=== PATIENT | female | born 2000 | race Caucasian/White ===

== ENCOUNTER → 2018-04-03 | Outpatient (CLI) | payer OTHER ==
[~2018-04-03] MED LIST: Amoxicillin500 MG PO; CODACEE120 PO; ERYT.5TO OS; Flomax0.4 MG PO; HYDACE5 PO; IBUP200 PO; LAXATIVES; MULTCH; PROC10 PO; PROM25 PO; Percocet 5-3251 EACH PO; RXCODACESY PO; RXERYTOPTH OS; SULTRIDS PO; SULTRIEL PO
[2018-04-03 14:00] LABS: BASOPHILS ABSOLUTE AUTO 0.02 K/mm3 (0.00-0.23); BASOPHILS PERCENT AUTO 0 % (0-2); EOSINOPHILS ABSOLUTE AUTO 0.18 K/mm3 (0.00-0.68); EOSINOPHILS PERCENT AUTO 3 % (0-6); Hematocrit 41.7 % (33.0-51.0); IMMATURE GRAN ABSOLUTE AUTO 0.01 K/mm3 (0.00-0.10); IMMATURE GRAN PERCENT AUTO 0 % (0-1); LYMPHOCYTES ABSOLUTE AUTO 1.43 K/mm3 (0.84-5.20); LYMPHOCYTES PERCENT AUTO 25 % (21-46); MONOCYTES ABSOLUTE AUTO 0.35 K/mm3 (0.16-1.47); MONOCYTES PERCENT AUTO 6 % (4-13); Mean Corpuscular HGB 29.9 pg (26.0-34.0); Mean Corpuscular HGB Conc 33.6 g/dL (31.5-36.5); Mean Corpuscular Volume 89 fL (80-100); Mean Platelet Volume 11.6 fL (9.1-12.4); NEUTROPHILS ABSOLUTE AUTO 3.68 K/mm3 (1.96-9.15); NEUTROPHILS PERCENT AUTO 65 % (41-73); Platelet Count 248 K/mm3 (150-400); RDW Coefficient Variation 14.3 % (11.7-14.2); Red Blood Cell Count 4.69 M/mm3 (3.80-5.20); White Blood Cell Count 5.67 K/mm3 (4.00-11.30)
[2018-04-03 14:18] LABS: Alanine Aminotransfer (ALT/SGP 15 U/L (12-78); Albumin, Blood 4.2 g/dL (3.4-5.0); Albumin/Globulin Ratio 1.3 (0.8-1.8); Alk Phos 82 U/L (40-126); Amylase, Blood 81 U/L (25-115); Anion Gap 10 mmol/L (6-16); Aspartate Aminotrans (AST/SGOT 15 U/L (12-37); Bilirubin, Total 2.1 mg/dL (0.1-1.0); Blood Urea Nitrogen 13 mg/dL (8-21); Bun/Creatinine Ratio 18.6 (12.0-20.0); CO2, Blood 26 mmol/L (21-32); Calcium, Blood 9.4 mg/dL (8.5-10.1); Chloride, Blood 104 mmol/L (98-108); Free Thyroxine 0.94 ng/dL (0.70-1.60); Globulin, Blood 3.2 g/dL (2.2-4.0); Glomerular Filtration Rate >60 (60-); Glucose, Blood 76 mg/dL (70-99); Potassium, Blood 4.1 mmol/L (3.5-5.5); Sodium, Blood 140 mmol/L (136-145); Thyroid Stimulating Hormone 0.845 uIU/mL (0.360-4.800); Total Protein, Blood 7.4 g/dL (6.4-8.2)
== END | disposition home or self-care (01) ==
LOC: LAB SHORT 13:48 → LAB EV 13:48
PROVIDERS: General Practice
DX: R10.9 Unspecified abdominal pain (principal); R53.83 Other fatigue
CPT/HCPCS: 80053; 82150; 83690; 84439; 84443; 84702; 85025

== ENCOUNTER 2021-02-17 09:57 | Emergency (ER) | payer OTHER ==
[~2021-02-17] VITALS: Ht 160 cm; Wt 44.5 kg
[2021-02-17 11:44] LABS: Hematocrit 44.1 % (33.0-51.0); Hemoglobin 15.1 g/dL (11.5-16.0); Mean Corpuscular HGB 31.1 pg (26.0-34.0); Mean Corpuscular HGB Conc 34.2 g/dL (31.5-36.5); Mean Corpuscular Volume 91 fL (80-100); Platelet Count 140 K/mm3 (150-400); RDW Coefficient Variation 13.5 % (11.7-14.2); RDW Standard Deviation 45.6 fL (35.1-46.3); Red Blood Cell Count 4.85 M/mm3 (3.80-5.20); White Blood Cell Count 2.78 K/mm3 (4.00-11.30)
[2021-02-17 12:08] LABS: Alanine Aminotransfer (ALT/SGP 43 U/L (12-78); Albumin, Blood 3.8 g/dL (3.4-5.0); Albumin/Globulin Ratio 1.1 (0.8-1.8); Alk Phos 100 U/L (50-136); Anion Gap 7 mmol/L (6-16); Aspartate Aminotrans (AST/SGOT 47 U/L (12-37); Beta HCG, Quantitative, Serum <1 mIU/mL (0-3); Bilirubin, Total 0.5 mg/dL (0.1-1.0); Blood Urea Nitrogen 11 mg/dL (8-24); Bun/Creatinine Ratio 16.3 (12.0-20.0); CO2, Blood 25 mmol/L (21-32); Calcium, Blood 8.9 mg/dL (8.5-10.1); Chloride, Blood 107 mmol/L (98-108); Creatinine, Blood 0.68 mg/dL (0.40-1.00); Globulin, Blood 3.6 g/dL (2.2-4.0); Glomerular Filtration Rate >60 (60-); Glucose, Blood 97 mg/dL (70-99); Potassium, Blood 3.4 mmol/L (3.5-5.5); Sodium, Blood 139 mmol/L (136-145); Thyroid Stimulating Hormone 0.645 uIU/mL (0.360-4.800); Total Protein, Blood 7.4 g/dL (6.4-8.2)
[2021-02-17 12:17] LABS: BAND PERCENT MAN 7 % (0-8); NEUTROPHILS ABSOLUTE MAN 2.44 K/mm3 (1.96-9.15); SEG NEUTROPHILS PERCENT MAN 81 % (41-73); TOTAL CELLS COUNTED 100
[2021-02-17 12:18] LABS: BASOPHILS PERCENT MAN 0 % (0-2); EOSINOPHILS PERCENT MAN 0 % (0-6); LYMPHOCYTES % ATYPICAL MANUAL 2 % (0-0); LYMPHOCYTES ABSOLUTE MAN 0.25 K/mm3 (0.84-5.20); LYMPHOCYTES PERCENT MAN 7 % (21-46); MONOCYTES ABSOLUTE MAN 0.08 K/mm3 (0.16-1.47); MONOCYTES PERCENT MAN 3 % (4-13)
[2021-02-17 12:48] LABS: Influenza A, PCR NEGATIVE (NEGATIVE); Influenza B, PCR NEGATIVE (NEGATIVE); Resp Syncytial Virus, PCR NEGATIVE (NEGATIVE); SARS-Cov-2 (COVID-19) PCR, MMC NEGATIVE (NEGATIVE)
[2021-02-17 13:02] LABS: Source, Urine Voided
[2021-02-17 13:07] LABS: Bilirubin, Urine Neg (Neg); Blood, Urine 1+ (Neg); Glucose Qualitative, Urine Neg (Neg); Ketones, Urine 4+ (Neg); Leukocyte Esterase, Urine 1+ (Neg); Nitrite, Urine Neg (Neg); Protein, Urine Neg (Neg); Urobilinogen, Urine NORM (Normal)
[2021-02-17 13:21] LABS: Appearance, Urine Clear (Clear); Bacteria Mod /hpf; Color, Urine Yellow (P-Yellow); Red Blood Cells, Urine 0-2 /hpf (0-2); Squamous Epithelial Cells Few /hpf (Few); White Blood Cells, Urine 0-2 /hpf (0-5)
[2021-02-17 13:22] LABS: U Amphetamine Screen Not Detected; U Barbituate Screen Not Detected; U Benzodiazapine Screen DETECTED; U Buprenorphine Screen Not Detected; U Cannabinoids Screen DETECTED; U Cocaine Screen Not Detected; U Methadone Screen Not Detected; U Methamphetamine Screen Not Detected; U Opiates Screen Not Detected; U Oxycodone Screen Not Detected; U Phencyclidine Screen Not Detected; U Propoxyphene Screen Not Detected
[2021-02-17] MEDS ORDERED: ONDA4ODT SL (13:26)
[2021-02-17] MEDS ORDERED: HYDR1TAB94 PO (13:26)
[2021-02-17] MEDS ORDERED: PHENERGAN25 MG PR (13:51)
== END 2021-02-17 13:52 | disposition home or self-care (01) ==
LOC: ER 09:57
PROVIDERS: Emergency Medicine
DX: R59.0 Localized enlarged lymph nodes (principal); R11.2 Nausea with vomiting, unspecified; Z20.822 Contact with and (suspected) exposure to COVID-19; Z87.442 Personal history of urinary calculi
CPT/HCPCS: 0241U; 36415; 80053; 81001; 84443; 84702; 85025; 87086; 96374; 96375; 99283-25; J2060; J2405; J7120

== ENCOUNTER 2021-07-05 16:59 | Emergency (ER) | payer OTHER ==
[~2021-07-05] VITALS: Ht 160 cm; Wt 47.6 kg
[~2021-07-05 16:59] MED LIST changes: +HYDR1TAB94 PO; +ONDA4ODT SL; +PHENERGAN25 MG PR
[2021-07-05 17:39] LABS: BASOPHILS ABSOLUTE AUTO 0.02 K/mm3 (0.00-0.23); BASOPHILS PERCENT AUTO 0 % (0-2); EOSINOPHILS ABSOLUTE AUTO 0.07 K/mm3 (0.00-0.68); EOSINOPHILS PERCENT AUTO 1 % (0-6); Hemoglobin 13.1 g/dL (11.5-16.0); IMMATURE GRAN ABSOLUTE AUTO 0.02 K/mm3 (0.00-0.10); IMMATURE GRAN PERCENT AUTO 0 % (0-1); LYMPHOCYTES ABSOLUTE AUTO 1.18 K/mm3 (0.84-5.20); LYMPHOCYTES PERCENT AUTO 19 % (21-46); MONOCYTES ABSOLUTE AUTO 0.39 K/mm3 (0.16-1.47); MONOCYTES PERCENT AUTO 6 % (4-13); Mean Corpuscular HGB 30.3 pg (26.0-34.0); Mean Corpuscular HGB Conc 33.6 g/dL (31.5-36.5); Mean Corpuscular Volume 90 fL (80-100); Mean Platelet Volume 11.3 fL (9.1-12.4); NEUTROPHILS ABSOLUTE AUTO 4.61 K/mm3 (1.96-9.15); NEUTROPHILS PERCENT AUTO 73 % (41-73); Platelet Count 227 K/mm3 (150-400); RDW Coefficient Variation 13.1 % (11.7-14.2); Red Blood Cell Count 4.33 M/mm3 (3.80-5.20); White Blood Cell Count 6.29 K/mm3 (4.00-11.30)
[2021-07-05 18:02] LABS: Alanine Aminotransfer (ALT/SGP 18 U/L (12-78); Albumin, Blood 4.2 g/dL (3.4-5.0); Albumin/Globulin Ratio 1.4 (0.8-1.8); Alk Phos 78 U/L (50-136); Anion Gap 7 mmol/L (6-16); Aspartate Aminotrans (AST/SGOT 23 U/L (12-37); Bilirubin, Total 1.1 mg/dL (0.1-1.0); Blood Urea Nitrogen 10 mg/dL (8-24); Bun/Creatinine Ratio 14.8 (12.0-20.0); CO2, Blood 24 mmol/L (21-32); Calcium, Blood 8.8 mg/dL (8.5-10.1); Chloride, Blood 108 mmol/L (98-108); Creatinine, Blood 0.68 mg/dL (0.40-1.00); Globulin, Blood 3.1 g/dL (2.2-4.0); Glomerular Filtration Rate >60 (60-); Glucose, Blood 88 mg/dL (70-99); Potassium, Blood 3.6 mmol/L (3.5-5.5); Sodium, Blood 139 mmol/L (136-145); Total Protein, Blood 7.3 g/dL (6.4-8.2)
[2021-07-05 18:54] LABS: Source, Urine Clean Catch
[2021-07-05 18:57] LABS: Appearance, Urine Clear (Clear); Bilirubin, Urine Neg (Neg); Blood, Urine 2+ (Neg); Color, Urine Yellow (P-Yellow); Glucose Qualitative, Urine Neg (Neg); Ketones, Urine 2+ (Neg); Leukocyte Esterase, Urine 1+ (Neg); Nitrite, Urine Neg (Neg); Protein, Urine 2+ (Neg); Specific Gravity, Urine 1.025 (1.003-1.022); Urobilinogen, Urine 1+ (Normal)
[2021-07-05 19:09] LABS: Bacteria Mod /hpf; Mucus Mod (0-Heavy); Red Blood Cells, Urine 0-2 /hpf (0-2); Squamous Epithelial Cells Few /hpf (Few); White Blood Cells, Urine 0-2 /hpf (0-5)
[2021-07-05] MEDS ORDERED: CITA20 PO (20:38)
== END 2021-07-05 21:25 | disposition home or self-care (01) ==
LOC: ER 16:59
PROVIDERS: Physician Assistant
DX: N93.9 Abnormal uterine and vaginal bleeding, unspecified (principal); R10.2 Pelvic and perineal pain
CPT/HCPCS: 36415; 80053; 81001; 81025; 83690; 85025; 87086; 96374; 96375; 99283-25; J1885; J2405

== ENCOUNTER → 2022-02-02 | Outpatient (CLI) | payer OTHER ==
[~2022-02-02] MED LIST changes: +CITA20 PO
[2022-02-03 10:07] LABS: Candida species (DNA Probe) Positive (NEGATIVE); G. vaginalis (DNA Probe) Positive (NEGATIVE); T. vaginalis (DNA Probe) Negative (NEGATIVE)
[2022-02-05 03:11] LABS: CHLAMYDIA TRACHOMATIS, NAA Negative (Negative)
== END | disposition home or self-care (01) ==
LOC: LAB SHORT 16:00 → LAB 16:00
PROVIDERS: Family Medicine
DX: R10.9 Unspecified abdominal pain (principal)
CPT/HCPCS: 87480; 87510; 87660

== ENCOUNTER → 2022-03-06 | Outpatient (CLI) | payer OTHER ==
[2022-03-07 13:02] LABS: Candida species (DNA Probe) Negative (NEGATIVE); G. vaginalis (DNA Probe) Negative (NEGATIVE); T. vaginalis (DNA Probe) Negative (NEGATIVE)
== END | disposition home or self-care (01) ==
LOC: LAB 17:00 → LAB SHORT 17:00
PROVIDERS: Obstetrics & Gynecology
DX: N94.89 Other specified conditions associated with female genital organs and menstrual cycle (principal); R10.9 Unspecified abdominal pain
CPT/HCPCS: 87480; 87510; 87660

== ENCOUNTER 2023-08-06 22:55 | Emergency (ER) | payer OTHER ==
[~2023-08-06] VITALS: Ht 162.6 cm; Wt 50.8 kg
[2023-08-06 23:14] VITALS: BP 145/112
[2023-08-07 00:53] LABS: BASOPHILS ABSOLUTE AUTO 0.01 K/mm3 (0.00-0.23); BASOPHILS PERCENT AUTO 0 % (0-2); EOSINOPHILS ABSOLUTE AUTO 0.02 K/mm3 (0.00-0.68); EOSINOPHILS PERCENT AUTO 0 % (0-6); Hematocrit 44.1 % (33.0-51.0); Hemoglobin 15.2 g/dL (11.5-16.0); IMMATURE GRAN ABSOLUTE AUTO 0.01 K/mm3 (0.00-0.10); IMMATURE GRAN PERCENT AUTO 0 % (0-1); LYMPHOCYTES ABSOLUTE AUTO 1.06 K/mm3 (0.84-5.20); LYMPHOCYTES PERCENT AUTO 18 % (21-46); MONOCYTES ABSOLUTE AUTO 0.33 K/mm3 (0.16-1.47); MONOCYTES PERCENT AUTO 6 % (4-13); Mean Corpuscular HGB 31.1 pg (26.0-34.0); Mean Corpuscular HGB Conc 34.5 g/dL (31.5-36.5); Mean Corpuscular Volume 90 fL (80-100); Mean Platelet Volume 10.8 fL (9.1-12.4); NEUTROPHILS ABSOLUTE AUTO 4.52 K/mm3 (1.96-9.15); NEUTROPHILS PERCENT AUTO 76 % (41-73); Platelet Count 232 K/mm3 (150-400); RDW Coefficient Variation 12.8 % (11.7-14.2); RDW Standard Deviation 42.2 fL (35.1-46.3); Red Blood Cell Count 4.89 M/mm3 (3.80-5.20); White Blood Cell Count 5.95 K/mm3 (4.00-11.30)
[2023-08-07 01:00] LABS: Source, Urine Clean Catch
[2023-08-07 01:14] LABS: Bilirubin, Urine Neg (Neg); Blood, Urine Neg (Neg); Glucose Qualitative, Urine Neg (Neg); Ketones, Urine 4+ (Neg); Leukocyte Esterase, Urine Neg (Neg); Nitrite, Urine Neg (Neg); Protein, Urine 2+ (Neg); Urobilinogen, Urine NORM (Normal)
[2023-08-07 01:20] LABS: Color, Urine Yellow (P-Yellow)
[2023-08-07 01:21] LABS: Appearance, Urine Hazy (Clear); Bacteria Few /hpf; Mucus Light (0-Heavy); Red Blood Cells, Urine 0-2 /hpf (0-2); Squamous Epithelial Cells Mod /hpf (Few); White Blood Cells, Urine 0-2 /hpf (0-5)
[2023-08-07 01:24] LABS: Albumin, Blood 4.1 g/dL (3.4-5.0); Albumin/Globulin Ratio 1.2 (0.8-1.8); Bilirubin, Total 0.6 mg/dL (0.1-1.0); Bun/Creatinine Ratio 16.1 (12.0-20.0); Calcium, Blood 9.1 mg/dL (8.5-10.1); Creatinine, Blood 0.62 mg/dL (0.40-1.00); Globulin, Blood 3.4 g/dL (2.2-4.0); Magnesium, Blood 2.2 mg/dL (1.6-2.4); Potassium, Blood 4.1 mmol/L (3.5-5.5); Total Protein, Blood 7.5 g/dL (6.4-8.2)
[2023-08-07] MEDS ORDERED: ONDA4ODT MM (02:50)
[2023-08-07] MEDS ORDERED: METO10 PO (02:50)
== END 2023-08-07 03:21 | disposition home or self-care (01) ==
LOC: ER 22:55
PROVIDERS: Student in an Organized Health Care Education/Training Program
DX: U07.1 COVID-19 (principal); E86.0 Dehydration; Z79.899 Other long term (current) drug therapy
CPT/HCPCS: 80053; 81001; 81025; 83735; 85025; 96374; 96375; 99284-25; A9270; J1200; J1885; J2405; J2765; J7030

== ENCOUNTER → 2024-03-01 | Outpatient (CLI) | payer OTHER ==
[~2024-03-01] MED LIST changes: +METO10 PO; +ONDA4ODT MM
[2024-03-01 15:18] LABS: Candida glabrata-krusei, PCR NOT DETECTED (NOT DETECT)
[2024-03-01 15:21] LABS: Bacterial Vaginosis PCR Positive (NEGATIVE); Candida Group, PCR DETECTED (NOT DETECT)
[2024-03-03 23:40] LABS: C. TRACHOMATIS BY TMA,THINPREP Negative (Negative); N. GONORRHOEAE BY TMA,THINPREP Negative (Negative); SPECIMEN SOURCE Not Provided
== END | disposition home or self-care (01) ==
LOC: LAB SHORT 12:13 → LAB 12:13
PROVIDERS: Advanced Practice Midwife
DX: Z01.419 Encounter for gynecological examination (general) (routine) without abnormal findings (principal); Z11.3 Encounter for screening for infections with a predominantly sexual mode of transmission; N76.0 Acute vaginitis
CPT/HCPCS: 87481; 87491; 87591; 87661; 87801; G0123

== ENCOUNTER → 2024-06-12 | Outpatient (CLI) | payer OTHER ==
[~2024-06-12] MED LIST changes: +ALPRAZOLAM0.5 M1 PO; +CATAPRES0.1 MG PO; +ESCI10 PO; +Flagyl500 MG PO; +HYDHCL25 PO; +METOPROLOL SUCC25 MG PO
[2024-06-12 14:01] LABS: Bacterial Vaginosis PCR Negative (NEGATIVE); Candida Group, PCR NOT DETECTED (NOT DETECT)
[2024-06-12 14:20] LABS: Candida glabrata-krusei, PCR DETECTED (NOT DETECT)
[2024-06-14 08:52] LABS: APTIMA MEDIA TYPE Unisex Swab; C. TRACHOMATIS BY TMA Negative (Negative); N. GONORRHOEAE BY TMA Negative (Negative); SPECIMEN SOURCE Vaginal
== END | disposition home or self-care (01) ==
LOC: LAB SHORT 11:15 → LAB 11:15
PROVIDERS: Physician Assistant
DX: N89.8 Other specified noninflammatory disorders of vagina (principal)
CPT/HCPCS: 87481; 87491; 87591; 87661; 87801

== ENCOUNTER 2024-09-08 16:05 | Emergency (ER) | payer OTHER ==
[~2024-09-08] VITALS: Ht 160 cm; Wt 49.4 kg
[~2024-09-08 16:05] MED LIST changes: -ONDA4 PO; -PERCOCET 10-321 EA10 PO; -TAMS.4ER PO
[2024-09-08 16:55] LABS: Source, Urine Clean Catch
[2024-09-08 17:01] LABS: BASOPHILS ABSOLUTE AUTO 0.01 K/mm3 (0.00-0.23); BASOPHILS PERCENT AUTO 0 % (0-2); EOSINOPHILS ABSOLUTE AUTO 0.01 K/mm3 (0.00-0.68); EOSINOPHILS PERCENT AUTO 0 % (0-6); Hematocrit 36.3 % (33.0-51.0); Hemoglobin 12.3 g/dL (11.5-16.0); IMMATURE GRAN ABSOLUTE AUTO 0.04 K/mm3 (0.00-0.10); IMMATURE GRAN PERCENT AUTO 0 % (0-1); LYMPHOCYTES ABSOLUTE AUTO 0.71 K/mm3 (0.84-5.20); LYMPHOCYTES PERCENT AUTO 7 % (21-46); MONOCYTES ABSOLUTE AUTO 0.49 K/mm3 (0.16-1.47); MONOCYTES PERCENT AUTO 5 % (4-13); Mean Corpuscular HGB 31.7 pg (26.0-34.0); Mean Corpuscular HGB Conc 33.9 g/dL (31.5-36.5); Mean Corpuscular Volume 94 fL (80-100); Mean Platelet Volume 10.8 fL (9.1-12.4); NEUTROPHILS PERCENT AUTO 88 % (41-73); Platelet Count 203 K/mm3 (150-400); RDW Coefficient Variation 13.4 % (11.7-14.2); RDW Standard Deviation 45.4 fL (35.1-46.3); Red Blood Cell Count 3.88 M/mm3 (3.80-5.20); White Blood Cell Count 10.46 K/mm3 (4.00-11.30)
[2024-09-08 17:01] LABS: Appearance, Urine Cloudy (Clear); Bilirubin, Urine Neg (Neg); Blood, Urine 5+ (Neg); Color, Urine Yellow (P-Yellow); Glucose Qualitative, Urine Neg (Neg); Ketones, Urine Neg (Neg); Leukocyte Esterase, Urine 1+ (Neg); Nitrite, Urine Neg (Neg); Protein, Urine 1+ (Neg); Specific Gravity, Urine 1.025 (1.003-1.022); Urobilinogen, Urine NORM (Normal)
[2024-09-08 17:14] LABS: Bacteria Many /hpf; Red Blood Cells, Urine 25-50 /hpf (0-2); Squamous Epithelial Cells Few /hpf (Few); Yeast/Fungi Urine Mod /hpf
[2024-09-08 17:15] LABS: Calcium Oxalate Crystals Few /hpf
[2024-09-08 17:37] LABS: Magnesium, Blood 1.8 mg/dL (1.6-2.4)
[2024-09-08 17:41] LABS: Albumin, Blood 3.7 g/dL (3.4-5.0); Albumin/Globulin Ratio 1.4 (0.8-1.8); Bilirubin, Total 0.4 mg/dL (0.1-1.0); Bun/Creatinine Ratio 9.4 (12.0-20.0); Calcium, Blood 8.6 mg/dL (8.5-10.1); Creatinine, Blood 0.95 mg/dL (0.40-1.00); Globulin, Blood 2.7 g/dL (2.2-4.0); Potassium, Blood 3.7 mmol/L (3.5-5.5); Total Protein, Blood 6.4 g/dL (6.4-8.2)
[2024-09-08] MEDS ORDERED: OxyCODONE HCL 5 MG TAB PO ONE (18:40)
[2024-09-08] MEDS ORDERED: NS 1,000 ML IV SCH (19:40)
[2024-09-08 21:40] LABS: Source, Urine Straight Cath
[2024-09-08 21:45] LABS: Appearance, Urine Clear (Clear); Bilirubin, Urine Neg (Neg); Blood, Urine 2+ (Neg); Color, Urine Yellow (P-Yellow); Glucose Qualitative, Urine Neg (Neg); Ketones, Urine Neg (Neg); Leukocyte Esterase, Urine Neg (Neg); Nitrite, Urine Neg (Neg); Protein, Urine Neg (Neg); Specific Gravity, Urine 1.025 (1.003-1.022); Urobilinogen, Urine NORM (Normal)
[2024-09-08] MEDS ORDERED: HYDROmorphone HCl 2 MG Tab PO ONE (21:50)
[2024-09-08] MEDS ORDERED: Tamsulosin HCl 0.4 MG Cap PO ONE (21:50)
[2024-09-08 21:59] LABS: Bacteria Mod /hpf; Squamous Epithelial Cells Few /hpf (Few); White Blood Cells, Urine 0-2 /hpf (0-5)
[2024-09-08] MEDS ORDERED: Ondansetron 4 MG SoluTab SL ONE (22:20)
[2024-09-08] MEDS ORDERED: RX Prepack 6 Tabs Oxycodone 5mg UD ONE (22:50)
[2024-09-08] MEDS ORDERED: RX Prepack 2 Tabs Ondansetron ODT 4MG UD ONE (22:50)
[2024-09-08 23:02] VITALS: BP 126/75
[2024-09-08] MEDS ORDERED: TAMS.4ER PO (23:04)
[2024-09-08] MEDS ORDERED: PERCOCET 10-321 EA10 PO (23:04)
[2024-09-08] MEDS ORDERED: ONDA4 PO (23:05)
[2024-09-09] MEDS ORDERED: Percocet 5-3251 EACH PO (11:41)
== END 2024-09-08 23:12 | disposition home or self-care (01) ==
LOC: ER 16:05
PROVIDERS: Physician Assistant; Student in an Organized Health Care Education/Training Program
DX: N13.2 Hydronephrosis with renal and ureteral calculous obstruction (principal); M41.9 Scoliosis, unspecified; R93.41 Abnormal radiologic findings on diagnostic imaging of renal pelvis, ureter, or bladder; R10.9 Unspecified abdominal pain; Z87.442 Personal history of urinary calculi; Z79.899 Other long term (current) drug therapy
CPT/HCPCS: 74176; 76770; 80048; 80053; 81001; 83735; 84703; 85025; 87086; 96360; 96361; 99284-25; A9270; J7030; P9612

== ENCOUNTER → 2024-09-08 | Outpatient (CLI) | payer OTHER ==
[~2024-09-08] MED LIST changes: +CEPH500 PO; +ONDA4 PO; +PERCOCET 10-321 EA10 PO; +TAMS.4ER PO
[2024-09-08 11:34] LABS: Bun/Creatinine Ratio 10.1 (12.0-20.0); Calcium, Blood 8.9 mg/dL (8.5-10.1); Creatinine, Blood 0.89 mg/dL (0.40-1.00); Potassium, Blood 3.6 mmol/L (3.5-5.5)
== END ==
LOC: LAB SHORT 11:23 → LAB 11:23
PROVIDERS: Family Medicine
DX: R10.9 Unspecified abdominal pain (principal)
CPT/HCPCS: 80048

== ENCOUNTER → 2025-01-11 | Outpatient (CLI) | payer OTHER ==
[~2025-01-11] MED LIST changes: +ONDA4 PO; +PERCOCET 10-321 EA10 PO; +TAMS.4ER PO
== END ==
LOC: LAB 15:49 → LAB SHORT 15:49
PROVIDERS: Advanced Practice Midwife
DX: R87.615 Unsatisfactory cytologic smear of cervix (principal)
CPT/HCPCS: G0123

== ENCOUNTER → 2025-07-10 | Outpatient (CLI) | payer OTHER ==
[2025-07-10 17:20] LABS: BASOPHILS ABSOLUTE AUTO 0.02 K/mm3 (0.00-0.23); BASOPHILS PERCENT AUTO 0 % (0-2); EOSINOPHILS ABSOLUTE AUTO 0.04 K/mm3 (0.00-0.68); EOSINOPHILS PERCENT AUTO 0 % (0-6); Hematocrit 37.0 % (33.0-51.0); Hemoglobin 12.6 g/dL (11.5-16.0); IMMATURE GRAN ABSOLUTE AUTO 0.05 K/mm3 (0.00-0.10); IMMATURE GRAN PERCENT AUTO 1 % (0-1); LYMPHOCYTES ABSOLUTE AUTO 1.53 K/mm3 (0.84-5.20); LYMPHOCYTES PERCENT AUTO 14 % (21-46); MONOCYTES ABSOLUTE AUTO 0.65 K/mm3 (0.16-1.47); MONOCYTES PERCENT AUTO 6 % (4-13); Mean Corpuscular HGB Conc 34.1 g/dL (31.5-36.5); Mean Corpuscular Volume 88 fL (80-100); NEUTROPHILS ABSOLUTE AUTO 8.31 K/mm3 (1.96-9.15); NEUTROPHILS PERCENT AUTO 78 % (41-73); NRBC ABSOLUTE 0.00 K/mm3 (0.00-0.02); NRBC Auto 0.0 /100 WBC (0.0-0.2); Platelet Count 294 K/mm3 (150-400); RDW Coefficient Variation 15.8 % (11.7-14.2); RDW Standard Deviation 50.4 fL (35.1-46.3)
[2025-07-10 17:29] LABS: Alanine Aminotransfer (ALT/SGP 20.0 U/L (12-78); Albumin, Blood 3.4 g/dL (3.4-5.0); Albumin/Globulin Ratio 0.9 (0.8-1.8); Anion Gap 14.0 mmol/L (3-11); Aspartate Aminotrans (AST/SGOT 21.0 U/L (12-37); Bilirubin, Total 0.8 mg/dL (0.1-1.0); Blood Urea Nitrogen 7.0 mg/dL (8-24); CO2, Blood 25.0 mmol/L (21-32); Calcium, Blood 8.8 mg/dL (8.5-10.1); Chloride, Blood 99.0 mmol/L (98-108); Creatinine, Blood 0.65 mg/dL (0.40-1.00); Globulin, Blood 3.8 g/dL (2.2-4.0); Glucose, Blood 78.0 mg/dL (70-99); Potassium, Blood 3.0 mmol/L (3.5-5.5); Sodium, Blood 135.0 mmol/L (136-145); Total Protein, Blood 7.2 g/dL (6.4-8.2)
== END | disposition home or self-care (01) ==
LOC: LAB 17:14 → LAB SHORT 17:14
PROVIDERS: Family Medicine
DX: N39.0 Urinary tract infection, site not specified (principal); R11.2 Nausea with vomiting, unspecified
CPT/HCPCS: 80053; 85025; 87086

== ENCOUNTER → 2025-07-18 | Outpatient (CLI) | payer OTHER | LOC: LAB 15:45 → LAB SHORT 15:45 | DX: R30.0 Dysuria (principal) | CPT/HCPCS: 87086 ==

== ENCOUNTER 2025-09-01 19:40 | Observation (INO) | payer OTHER ==
[~2025-09-01] VITALS: Ht 160 cm; Wt 62.6 kg
[2025-09-01] MEDS ORDERED: Morphine Sulfate 4 MG/1 ML Injection IV ONE (20:30)
[2025-09-01] MEDS ORDERED: NS 1,000 ML IV SCH ×2 (20:30→22:05)
[2025-09-01 20:48] LABS: Source, Urine Clean Catch
[2025-09-01 20:51] LABS: BASOPHILS ABSOLUTE AUTO 0.04 K/mm3 (0.00-0.23); BASOPHILS PERCENT AUTO 0 % (0-2); EOSINOPHILS ABSOLUTE AUTO 0.05 K/mm3 (0.00-0.68); EOSINOPHILS PERCENT AUTO 0 % (0-6); Hematocrit 37.4 % (33.0-51.0); Hemoglobin 12.4 g/dL (11.5-16.0); IMMATURE GRAN ABSOLUTE AUTO 0.09 K/mm3 (0.00-0.10); IMMATURE GRAN PERCENT AUTO 1 % (0-1); LYMPHOCYTES ABSOLUTE AUTO 1.39 K/mm3 (0.84-5.20); LYMPHOCYTES PERCENT AUTO 11 % (21-46); MONOCYTES ABSOLUTE AUTO 0.61 K/mm3 (0.16-1.47); MONOCYTES PERCENT AUTO 5 % (4-13); Mean Corpuscular HGB Conc 33.2 g/dL (31.5-36.5); Mean Corpuscular Volume 86 fL (80-100); NEUTROPHILS ABSOLUTE AUTO 10.16 K/mm3 (1.96-9.15); NEUTROPHILS PERCENT AUTO 82 % (41-73); NRBC ABSOLUTE 0.00 K/mm3 (0.00-0.02); NRBC Auto 0.0 /100 WBC (0.0-0.2); Platelet Count 282 K/mm3 (150-400); RDW Coefficient Variation 14.4 % (11.7-14.2); RDW Standard Deviation 45.0 fL (35.1-46.3)
[2025-09-01 21:00] LABS: Bilirubin, Urine Neg (Neg); Color, Urine Brown (P-Yellow); Glucose Qualitative, Urine Neg (Neg); Ketones, Urine Neg (Neg); Leukocyte Esterase, Urine 2+ (Neg); Protein, Urine 3+ (Neg); Specific Gravity, Urine 1.020 (1.003-1.022); Urobilinogen, Urine NORM (Normal)
[2025-09-01 21:10] LABS: Alanine Aminotransfer (ALT/SGP 23.0 U/L (12-78); Albumin, Blood 3.1 g/dL (3.4-5.0); Albumin/Globulin Ratio 0.8 (0.8-1.8); Anion Gap 7.0 mmol/L (3-11); Aspartate Aminotrans (AST/SGOT 20.0 U/L (12-37); Bilirubin, Total 0.5 mg/dL (0.1-1.0); Blood Urea Nitrogen 15.0 mg/dL (8-24); CO2, Blood 19.0 mmol/L (21-32); Calcium, Blood 8.7 mg/dL (8.5-10.1); Chloride, Blood 112.0 mmol/L (98-108); Creatinine, Blood 0.69 mg/dL (0.40-1.00); Globulin, Blood 3.8 g/dL (2.2-4.0); Glucose, Blood 95.0 mg/dL (70-99); Potassium, Blood 3.6 mmol/L (3.5-5.5); Sodium, Blood 134.0 mmol/L (136-145); Total Protein, Blood 6.9 g/dL (6.4-8.2)
[2025-09-01 21:16] LABS: Red Blood Cells, Urine 50-100 /hpf (0-2); White Blood Cells, Urine 25-50 /hpf (0-5)
[2025-09-01] MEDS ORDERED: CefTRIAXone Sodium 1,000 MG in NS 100 ML IV ONE (21:35)
[2025-09-01] MEDS ORDERED: FentaNYL Citrate 50 MCG/ML 2 ML Injection IV ONE (22:05)
[2025-09-01] MEDS ORDERED: Magnesium Hydroxide Conc 10 ML UDC PO PRN (22:45)
[2025-09-01] MEDS ORDERED: FentaNYL Citrate 50 MCG/ML 2 ML Injection IV PRN (22:50)
[2025-09-01] MEDS ORDERED: NIFEdipine 60 MG TabCR PO SCH (23:00)
[2025-09-01] MEDS ORDERED: Ondansetron HCl 2 MG / ML 2ML Vial ONE (23:43)
[2025-09-01 23:53] VITALS: BP 172/112
[2025-09-01] MEDS ORDERED: Ondansetron HCl 2 MG / ML 2ML Vial IV PRN (23:55)
[2025-09-02] VITALS (23 sets, daily range): BP systolic 109–164; BP diastolic 58–105
[2025-09-02] MEDS ORDERED: NIFE60ER PO (00:25)
[2025-09-02] MEDS ORDERED: Buspirone HCl15 MG PO (00:25)
[2025-09-02] MEDS ORDERED: ASPIR 8181 M1 PO (00:26)
[2025-09-02 05:43] LABS: BASOPHILS ABSOLUTE AUTO 0.03 K/mm3 (0.00-0.23); BASOPHILS PERCENT AUTO 0 % (0-2); EOSINOPHILS ABSOLUTE AUTO 0.07 K/mm3 (0.00-0.68); EOSINOPHILS PERCENT AUTO 1 % (0-6); Hematocrit 32.8 % (33.0-51.0); Hemoglobin 10.8 g/dL (11.5-16.0); IMMATURE GRAN ABSOLUTE AUTO 0.09 K/mm3 (0.00-0.10); IMMATURE GRAN PERCENT AUTO 1 % (0-1); LYMPHOCYTES ABSOLUTE AUTO 1.80 K/mm3 (0.84-5.20); LYMPHOCYTES PERCENT AUTO 17 % (21-46); MONOCYTES ABSOLUTE AUTO 0.57 K/mm3 (0.16-1.47); MONOCYTES PERCENT AUTO 5 % (4-13); Mean Corpuscular HGB Conc 32.9 g/dL (31.5-36.5); Mean Corpuscular Volume 89 fL (80-100); NEUTROPHILS ABSOLUTE AUTO 8.29 K/mm3 (1.96-9.15); NEUTROPHILS PERCENT AUTO 76 % (41-73); NRBC ABSOLUTE 0.00 K/mm3 (0.00-0.02); NRBC Auto 0.0 /100 WBC (0.0-0.2); Platelet Count 239 K/mm3 (150-400); RDW Coefficient Variation 14.4 % (11.7-14.2); RDW Standard Deviation 46.2 fL (35.1-46.3)
[2025-09-02 06:30] LABS: Alanine Aminotransfer (ALT/SGP 20.0 U/L (12-78); Albumin, Blood 2.6 g/dL (3.4-5.0); Albumin/Globulin Ratio 0.8 (0.8-1.8); Anion Gap 6.0 mmol/L (3-11); Aspartate Aminotrans (AST/SGOT 18.0 U/L (12-37); Bilirubin, Total 0.3 mg/dL (0.1-1.0); Blood Urea Nitrogen 6.0 mg/dL (8-24); CO2, Blood 21.0 mmol/L (21-32); Calcium, Blood 7.6 mg/dL (8.5-10.1); Chloride, Blood 113.0 mmol/L (98-108); Creatinine, Blood 0.5 mg/dL (0.40-1.00); Globulin, Blood 3.3 g/dL (2.2-4.0); Glucose, Blood 74.0 mg/dL (70-99); Potassium, Blood 3.4 mmol/L (3.5-5.5); Sodium, Blood 137.0 mmol/L (136-145); Thyroid Stimulating Hormone 1.93 uIU/mL (0.360-4.800); Total Protein, Blood 5.9 g/dL (6.4-8.2)
[2025-09-02] MEDS ORDERED: CefTRIAXone Sodium 2,000 MG in NS 100 ML IV SCH ×2 (09:00→21:00)
[2025-09-02] MEDS ORDERED: NIFEdipine 60 MG TabCR PO ONE (23:55)
[2025-09-03 03:12] VITALS: BP 140/90
[2025-09-03 08:58] VITALS: BP 162/89
[2025-09-03 09:20] VITALS: BP 143/86
[2025-09-03 13:30] VITALS: BP 118/62
== END 2025-09-03 14:30 | disposition home or self-care (01) ==
LOC: ER 19:40 → BC 19:41
PROVIDERS: Emergency Medicine; ADMIT Obstetrics & Gynecology
DX: O26.832 Pregnancy related renal disease, second trimester (principal); N13.2 Hydronephrosis with renal and ureteral calculous obstruction; O10.912 Unspecified pre-existing hypertension complicating pregnancy, second trimester; O99.891 Other specified diseases and conditions complicating pregnancy; M41.9 Scoliosis, unspecified; Z3A.27 27 weeks gestation of pregnancy; Z79.82 Long term (current) use of aspirin; Z79.899 Other long term (current) drug therapy; Z87.891 Personal history of nicotine dependence
CPT/HCPCS: 36415; 59025; 76770; 80053; 81001; 83605; 84439; 84443; 85025; 87040; 87086; 93005; 93010; 96361; 96374; 96375; 96376; 99285-25; A9270; G0378; J0696; J2270; J2405; J3010; J7030

== ENCOUNTER 2025-09-14 23:47 | Inpatient (IN) | payer OTHER ==
[~2025-09-14] VITALS: Ht 160 cm; Wt 62.7 kg
[~2025-09-14 23:47] MED LIST changes: +ASPIR 8181 M1 PO; +Buspirone HCl15 MG PO; +NIFE60ER PO
[2025-09-14 23:58] VITALS: BP 183/124
[2025-09-15] VITALS (25 sets, daily range): BP systolic 105–175; BP diastolic 58–126
[2025-09-15] MEDS ORDERED: Labetalol HCL 5 MG/ML 4ML Injection (Single Dose) IV PRN ×2 (00:20)
[2025-09-15] MEDS ORDERED: Labetalol HCL 5 MG/ML 4ML Injection (Single Dose) IV ONE (00:20)
[2025-09-15] MEDS ORDERED: Magnesium Sul 4 GM/Water100 ML 100 ML IV ONE (00:20)
[2025-09-15] MEDS ORDERED: Magnesium Sulf 2 GM/Water 50ML 50 ML IV SCH (00:20)
[2025-09-15] MEDS ORDERED: Labetalol HCL 5 MG/ML 4ML Injection (Single Dose) ONE (00:26)
[2025-09-15 00:45] LABS: BASOPHILS ABSOLUTE AUTO 0.04 K/mm3 (0.00-0.23); BASOPHILS PERCENT AUTO 0 % (0-2); EOSINOPHILS ABSOLUTE AUTO 0.08 K/mm3 (0.00-0.68); EOSINOPHILS PERCENT AUTO 1 % (0-6); Hematocrit 35.5 % (33.0-51.0); Hemoglobin 11.8 g/dL (11.5-16.0); IMMATURE GRAN ABSOLUTE AUTO 0.10 K/mm3 (0.00-0.10); IMMATURE GRAN PERCENT AUTO 1 % (0-1); LYMPHOCYTES ABSOLUTE AUTO 1.74 K/mm3 (0.84-5.20); LYMPHOCYTES PERCENT AUTO 11 % (21-46); MONOCYTES ABSOLUTE AUTO 0.78 K/mm3 (0.16-1.47); MONOCYTES PERCENT AUTO 5 % (4-13); Mean Corpuscular HGB Conc 33.2 g/dL (31.5-36.5); Mean Corpuscular Volume 85 fL (80-100); NEUTROPHILS ABSOLUTE AUTO 12.78 K/mm3 (1.96-9.15); NEUTROPHILS PERCENT AUTO 82 % (41-73); NRBC ABSOLUTE 0.00 K/mm3 (0.00-0.02); NRBC Auto 0.0 /100 WBC (0.0-0.2); Platelet Count 334 K/mm3 (150-400); RDW Coefficient Variation 14.9 % (11.7-14.2); RDW Standard Deviation 46.4 fL (35.1-46.3)
[2025-09-15] MEDS ORDERED: Ondansetron HCl 2 MG / ML 2ML Vial IV PRN (00:55)
[2025-09-15 01:04] LABS: Fibrinogen 406.0 mg/dL (170-430); Prothrombin Time Results 10.4 Sec (9.7-11.5)
[2025-09-15 01:22] LABS: Alanine Aminotransfer (ALT/SGP 26.0 U/L (12-78); Albumin, Blood 3.1 g/dL (3.4-5.0); Albumin/Globulin Ratio 0.8 (0.8-1.8); Anion Gap 9.0 mmol/L (3-11); Aspartate Aminotrans (AST/SGOT 21.0 U/L (12-37); Bilirubin, Total 0.3 mg/dL (0.1-1.0); Blood Urea Nitrogen 10.0 mg/dL (8-24); CO2, Blood 21.0 mmol/L (21-32); Calcium, Blood 8.3 mg/dL (8.5-10.1); Chloride, Blood 110.0 mmol/L (98-108); Creatinine, Blood 0.54 mg/dL (0.40-1.00); Globulin, Blood 4.0 g/dL (2.2-4.0); Glucose, Blood 89.0 mg/dL (70-99); Lactate Dehydrogenase (Ld),Bld 208.0 U/L (100-240); Potassium, Blood 3.8 mmol/L (3.5-5.5); Sodium, Blood 136.0 mmol/L (136-145); Total Protein, Blood 7.1 g/dL (6.4-8.2)
[2025-09-15 01:24] LABS: Creatinine, Urine Random 21.8 mg/dL (27.00-270.00); Protein, Urine Random 17.9 mg/dL (0.0-11.9); Protein/Creat Ratio, Ur Random 0.8
[2025-09-15] MEDS ORDERED: Betamethasone Sod Phos/Acetate 6 MG/ML 5ML VIAL IM ONE (01:30)
[2025-09-15 01:53] LABS: U Amphetamine Screen Not Detected; U Barbiturate Screen Not Detected; U Benzodiazapine Screen Not Detected; U Buprenorphine Screen Not Detected; U Cannabinoids Screen Not Detected; U Cocaine Screen Not Detected; U Methadone Screen Not Detected; U Methamphetamine Screen Not Detected; U Opiates Screen Not Detected; U Oxycodone Screen Not Detected; U Phencyclidine Screen Not Detected
[2025-09-15] MEDS ORDERED: NIFEdipine 60 MG TabCR PO ONE (02:55)
[2025-09-15] MEDS ORDERED: NIFEdipine 60 MG TabCR PO SCH ×2 (03:00→09:00)
== END 2025-09-15 06:00 | disposition short-term general hospital (02) | DRG 832 ==
LOC: OBS 23:47 → BC 23:49 → OBS 09-15 00:44 → BC 09-15 00:44
PROVIDERS: Obstetrics & Gynecology; ADMIT Family Medicine
DX: O11.3 Pre-existing hypertension with pre-eclampsia, third trimester (principal); O99.323 Drug use complicating pregnancy, third trimester; F19.10 Other psychoactive substance abuse, uncomplicated; O99.353 Diseases of the nervous system complicating pregnancy, third trimester; F41.9 Anxiety disorder, unspecified; O99.283 Endocrine, nutritional and metabolic diseases complicating pregnancy, third trimester; E74.39 Other disorders of intestinal carbohydrate absorption; Z3A.29 29 weeks gestation of pregnancy
CPT/HCPCS: 80053; 81003; 82570; 83615; 84156; 85025; 85384; 85610; 85730; 86850; 86900; 86901; 87081; 87150; A9270; J0702; J2405; J3475; J7120

== ENCOUNTER → 2025-10-20 | Outpatient (CLI) | payer OTHER | LOC: LAB 17:57 → LAB SHORT 17:57 | DX: O09.93 Supervision of high risk pregnancy, unspecified, third trimester (principal) | CPT/HCPCS: 87081; 87150 ==

== ENCOUNTER 2025-11-05 19:03 | Inpatient (IN) | payer OTHER ==
[2025-11-05] VITALS (14 sets, daily range): BP systolic 110–172; BP diastolic 60–110
[~2025-11-05] VITALS: Ht 160 cm; Wt 65.1 kg
[~2025-11-05 19:03] MED LIST changes: +Carboprost Tromethamine 250 MCG/ML 1ML Amp IM ONE; +Methylergonovine Maleate 0.2MG / ML 1ML Amp IV ONE
[2025-11-05] MEDS ORDERED: Carboprost Tromethamine 250 MCG/ML 1ML Amp IM PRN (19:15)
[2025-11-05] MEDS ORDERED: ePHEDrine Sulfate 50 MG/ML 1ML Injection XX PRN (19:15)
[2025-11-05] MEDS ORDERED: Oxytocin 10 Unit / ML Vial IM PRN (19:15)
[2025-11-05] MEDS ORDERED: OXYTOCIN/RINGER'S LACTATE 500 ML IV PRN ×2 (19:15→19:20)
[2025-11-05] MEDS ORDERED: Tranexamic Acid 100 ML IV SCH (19:15)
[2025-11-05] MEDS ORDERED: Methylergonovine Maleate 0.2MG / ML 1ML Amp IM PRN (19:15)
[2025-11-05] MEDS ORDERED: FentaNYL 2mcg/ml-Bup 0.1% Epd 250 ML EPI PRN (19:15)
[2025-11-05] MEDS ORDERED: Ondansetron HCl 2 MG / ML 2ML Vial IV PRN (19:25)
[2025-11-05 20:09] LABS: BASOPHILS ABSOLUTE AUTO 0.03 K/mm3 (0.00-0.23); BASOPHILS PERCENT AUTO 0 % (0-2); EOSINOPHILS ABSOLUTE AUTO 0.06 K/mm3 (0.00-0.68); EOSINOPHILS PERCENT AUTO 1 % (0-6); Hematocrit 34.9 % (33.0-51.0); Hemoglobin 11.5 g/dL (11.5-16.0); IMMATURE GRAN ABSOLUTE AUTO 0.05 K/mm3 (0.00-0.10); IMMATURE GRAN PERCENT AUTO 1 % (0-1); LYMPHOCYTES ABSOLUTE AUTO 1.50 K/mm3 (0.84-5.20); LYMPHOCYTES PERCENT AUTO 15 % (21-46); MONOCYTES ABSOLUTE AUTO 0.50 K/mm3 (0.16-1.47); MONOCYTES PERCENT AUTO 5 % (4-13); Mean Corpuscular HGB Conc 33.0 g/dL (31.5-36.5); Mean Corpuscular Volume 86 fL (80-100); NEUTROPHILS ABSOLUTE AUTO 8.03 K/mm3 (1.96-9.15); NEUTROPHILS PERCENT AUTO 79 % (41-73); NRBC ABSOLUTE 0.00 K/mm3 (0.00-0.02); NRBC Auto 0.0 /100 WBC (0.0-0.2); Platelet Count 242 K/mm3 (150-400); RDW Coefficient Variation 17.4 % (11.7-14.2); RDW Standard Deviation 54.4 fL (35.1-46.3)
[2025-11-05 20:44] LABS: Alanine Aminotransfer (ALT/SGP 22.0 U/L (12-78); Albumin, Blood 2.9 g/dL (3.4-5.0); Albumin/Globulin Ratio 0.8 (0.8-1.8); Anion Gap 10.0 mmol/L (3-11); Aspartate Aminotrans (AST/SGOT 19.0 U/L (12-37); Bilirubin, Total 0.4 mg/dL (0.1-1.0); Blood Urea Nitrogen 16.0 mg/dL (8-24); CO2, Blood 16.0 mmol/L (21-32); Calcium, Blood 9.0 mg/dL (8.5-10.1); Chloride, Blood 114.0 mmol/L (98-108); Creatinine, Blood 0.73 mg/dL (0.40-1.00); Globulin, Blood 3.6 g/dL (2.2-4.0); Glucose, Blood 96.0 mg/dL (70-99); Potassium, Blood 3.9 mmol/L (3.5-5.5); Sodium, Blood 136.0 mmol/L (136-145); Total Protein, Blood 6.5 g/dL (6.4-8.2)
[2025-11-05] MEDS ORDERED: FentaNYL Citrate 50 MCG/ML 2 ML Injection IV PRN (21:30)
[2025-11-05 21:33] LABS: Creatinine, Urine Random 72.5 mg/dL (27.00-270.00); Protein, Urine Random 52.3 mg/dL (0.0-11.9); Protein/Creat Ratio, Ur Random 0.7
[2025-11-05] MEDS ORDERED: NIFEdipine 60 MG TabCR PO SCH (21:50)
[2025-11-05] MEDS ORDERED: LABE200 PO (21:54)
[2025-11-05] MEDS ORDERED: Magnesium Sul 4 GM/Water100 ML 100 ML IV ONE ×2 (22:19→22:25)
[2025-11-05] MEDS ORDERED: Labetalol HCL 5 MG/ML 4ML Injection (Single Dose) ONE (22:19)
[2025-11-05] MEDS ORDERED: Labetalol HCL 5 MG/ML 4ML Injection (Single Dose) IV ONE (22:25)
[2025-11-05] MEDS ORDERED: Labetalol HCL 5 MG/ML 4ML Injection (Single Dose) IV PRN ×2 (22:25)
[2025-11-05 22:47] LABS: Lactate Dehydrogenase (Ld),Bld 210.0 U/L (100-240)
[2025-11-05 23:05] LABS: Fibrinogen 357.0 mg/dL (170-430); Prothrombin Time Results 10.2 Sec (9.7-11.5)
[2025-11-05] MEDS ORDERED: Penicillin G Potassium 2,500,000 UNITS in Dextrose 5% 100 ML IV PRN (23:15)
[2025-11-05] MEDS ORDERED: Penicillin G Potassium 5,000,000 UNITS in NS 250 ML IV PRN (23:15)
[2025-11-06] VITALS (68 sets, daily range): BP systolic 81–174; BP diastolic 38–102
[2025-11-06 01:09] LABS: BASOPHILS ABSOLUTE AUTO 0.03 K/mm3 (0.00-0.23); BASOPHILS PERCENT AUTO 0 % (0-2); EOSINOPHILS ABSOLUTE AUTO 0.08 K/mm3 (0.00-0.68); EOSINOPHILS PERCENT AUTO 1 % (0-6); Hematocrit 34.3 % (33.0-51.0); Hemoglobin 11.0 g/dL (11.5-16.0); IMMATURE GRAN ABSOLUTE AUTO 0.07 K/mm3 (0.00-0.10); IMMATURE GRAN PERCENT AUTO 1 % (0-1); LYMPHOCYTES ABSOLUTE AUTO 1.71 K/mm3 (0.84-5.20); LYMPHOCYTES PERCENT AUTO 16 % (21-46); MONOCYTES ABSOLUTE AUTO 0.52 K/mm3 (0.16-1.47); MONOCYTES PERCENT AUTO 5 % (4-13); Mean Corpuscular HGB Conc 32.1 g/dL (31.5-36.5); Mean Corpuscular Volume 86 fL (80-100); NEUTROPHILS ABSOLUTE AUTO 8.04 K/mm3 (1.96-9.15); NEUTROPHILS PERCENT AUTO 77 % (41-73); NRBC ABSOLUTE 0.00 K/mm3 (0.00-0.02); NRBC Auto 0.0 /100 WBC (0.0-0.2); Platelet Count 225 K/mm3 (150-400); RDW Coefficient Variation 17.4 % (11.7-14.2); RDW Standard Deviation 55.2 fL (35.1-46.3)
[2025-11-06 02:05] LABS: Albumin, Blood 2.9 g/dL (3.4-5.0); Albumin/Globulin Ratio 0.9 (0.8-1.8); Anion Gap 10.0 mmol/L (3-11); Aspartate Aminotrans (AST/SGOT 21.0 U/L (12-37); Bilirubin, Total 0.3 mg/dL (0.1-1.0); Blood Urea Nitrogen 16.0 mg/dL (8-24); CO2, Blood 17.0 mmol/L (21-32); Calcium, Blood 8.0 mg/dL (8.5-10.1); Chloride, Blood 112.0 mmol/L (98-108); Creatinine, Blood 0.72 mg/dL (0.40-1.00); Globulin, Blood 3.1 g/dL (2.2-4.0); Glucose, Blood 103.0 mg/dL (70-99); Potassium, Blood 4.0 mmol/L (3.5-5.5); Sodium, Blood 135.0 mmol/L (136-145); Total Protein, Blood 6.0 g/dL (6.4-8.2)
[2025-11-06 02:06] LABS: Magnesium, Blood 5.6 mg/dL (1.6-2.4)
[2025-11-06 02:19] LABS: Alanine Aminotransfer (ALT/SGP 21.0 U/L (12-78)
[2025-11-06] MEDS ORDERED: Metoclopramide HCl 5MG / ML 2ML Vial IV ONE ×2 (03:50→09:35)
[2025-11-06] MEDS ORDERED: Midazolam HCl 1MG / ML 2ML Vial ONE (09:34)
[2025-11-06] MEDS ORDERED: Oxytocin 10 Unit / ML Vial ONE ×4 (09:34→11:35)
[2025-11-06] MEDS ORDERED: FentaNYL Citrate 50 MCG/ML 2 ML Injection ONE (09:34)
[2025-11-06] MEDS ORDERED: Citric Acid/Sodium Citrate 30 ML BTL PO ONE (09:35)
[2025-11-06] MEDS ORDERED: CeFAZolin Sodium 2,000 MG in NS 100 ML IV SCH (09:35)
[2025-11-06] MEDS ORDERED: Phenylephrine HCl 100 MCG/ML-NS 10MLSYR (1MG/10ML) ONE ×2 (10:17→11:21)
[2025-11-06] MEDS ORDERED: Tranexamic Acid 100 ML IV ONE (10:56)
[2025-11-06] MEDS ORDERED: Carboprost Tromethamine 250 MCG/ML 1ML Amp ONE (11:08)
[2025-11-06] MEDS ORDERED: ePHEDrine Sulfate 50 MG/ML 1ML Injection ONE (11:12)
[2025-11-06 11:28] LABS: PCO2 Cord - Arterial 56.3 mmHg (40-50); PO2 Cord - Arterial < 12.3 mmHg (16-20); pH Cord - Arterial 7.16 (7.28-7.35)
[2025-11-06 11:30] LABS: PCO2 Cord - Venous 44.1 mmHg (40-50); PO2 Cord - Venous 16.1 mmHg (28-32); pH Umbilical Cord - Venous 7.27 (7.26-7.35)
[2025-11-06] MEDS ORDERED: EpiNEPhrine 1 MG/1 ML 1ML Vial ONE (11:34)
[2025-11-06] MEDS ORDERED: Ondansetron HCl 2 MG / ML 2ML Vial IV PRN ×2 (11:50→12:00)
[2025-11-06] MEDS ORDERED: FentaNYL Citrate 50 MCG/ML 2 ML Injection IV PRN (11:50)
[2025-11-06] MEDS ORDERED: Ketorolac Tromethamine 30mg Vial IV SCH (12:00)
[2025-11-06] MEDS ORDERED: Magnesium Hydroxide Conc 10 ML UDC PO PRN (12:00)
[2025-11-06] MEDS ORDERED: HYDROmorphone HCl/Pf 1MG SYR IV PRN (12:05)
--- NOTE | 2025-11-06 14:24 | NUR ---
11/06/25 1424 Toshia Camacho PRIOR TO CASE FHT 105-111BPM WHILE ERNANDEZ WAS BEING INSERTED. VIABLE DELIVERY OF BABY GIRL AT 1105. KIWI WAS USED WITH 2 PULLS/ 2 POP OFFS. CORD BLOOD SENT TO LAB. CORD SEGMENT WAS GIVEN TO RAIMUNDO CORTEZ
[2025-11-06] MEDS ORDERED: Metoclopramide HCl 5MG / ML 2ML Vial IV PRN (17:20)
[2025-11-06 18:32] LABS: BASOPHILS ABSOLUTE AUTO 0.03 K/mm3 (0.00-0.23); BASOPHILS PERCENT AUTO 0 % (0-2); EOSINOPHILS ABSOLUTE AUTO 0.01 K/mm3 (0.00-0.68); EOSINOPHILS PERCENT AUTO 0 % (0-6); Hematocrit 35.1 % (33.0-51.0); Hemoglobin 11.6 g/dL (11.5-16.0); IMMATURE GRAN ABSOLUTE AUTO 0.09 K/mm3 (0.00-0.10); IMMATURE GRAN PERCENT AUTO 1 % (0-1); LYMPHOCYTES ABSOLUTE AUTO 1.17 K/mm3 (0.84-5.20); LYMPHOCYTES PERCENT AUTO 6 % (21-46); MONOCYTES ABSOLUTE AUTO 1.46 K/mm3 (0.16-1.47); MONOCYTES PERCENT AUTO 8 % (4-13); Mean Corpuscular HGB Conc 33.0 g/dL (31.5-36.5); Mean Corpuscular Volume 86 fL (80-100); NEUTROPHILS ABSOLUTE AUTO 16.52 K/mm3 (1.96-9.15); NEUTROPHILS PERCENT AUTO 86 % (41-73); NRBC ABSOLUTE 0.00 K/mm3 (0.00-0.02); NRBC Auto 0.0 /100 WBC (0.0-0.2); Platelet Count 204 K/mm3 (150-400); RDW Coefficient Variation 17.2 % (11.7-14.2); RDW Standard Deviation 53.5 fL (35.1-46.3)
[2025-11-06 18:50] LABS: Fibrinogen 319.0 mg/dL (170-430); Prothrombin Time Results 9.4 Sec (9.7-11.5)
[2025-11-06 20:01] LABS: Alanine Aminotransfer (ALT/SGP 18.0 U/L (12-78); Albumin, Blood 2.5 g/dL (3.4-5.0); Albumin/Globulin Ratio 0.8 (0.8-1.8); Anion Gap 13.0 mmol/L (3-11); Aspartate Aminotrans (AST/SGOT 38.0 U/L (12-37); Bilirubin, Total 0.5 mg/dL (0.1-1.0); Blood Urea Nitrogen 14.0 mg/dL (8-24); CO2, Blood 16.0 mmol/L (21-32); Calcium, Blood 7.3 mg/dL (8.5-10.1); Chloride, Blood 107.0 mmol/L (98-108); Creatinine, Blood 1.23 mg/dL (0.40-1.00); Globulin, Blood 3.2 g/dL (2.2-4.0); Glucose, Blood 113.0 mg/dL (70-99); Potassium, Blood 3.4 mmol/L (3.5-5.5); Sodium, Blood 133.0 mmol/L (136-145); Total Protein, Blood 5.7 g/dL (6.4-8.2)
--- NOTE | 2025-11-06 20:02 | NUR ---
R phone call to Dr. Jerez with pt update of getting Calciumn Gluconate. Dr. Jerez at this time wants a mag level again in 2 hours. Depending on results Mag may be started again but at a lower dose. Pt to also be put on Tele.
--- NOTE | 2025-11-06 20:16 | NUR ---
RN PHONE CALL TO DR. REECE WITH UPDATED LAB RESULTS. DR. REECE HAS CHNAGED LAB ORDERS TO BE A BMP AND MAG LEVEL IN 2 HOURS. WELL DISCONTINUE TORADOL AND IBUPROPHEN.
--- NOTE | 2025-11-06 20:49 | NUR ---
2027- RN DELETED B/P PT WAS MOVING HER ARM AROUND TO EAT WHILE B/P WAS BEING TAKEN.
[2025-11-06 22:02] LABS: Anion Gap 13.0 mmol/L (3-11); Blood Urea Nitrogen 14.0 mg/dL (8-24); CO2, Blood 18.0 mmol/L (21-32); Calcium, Blood 7.7 mg/dL (8.5-10.1); Chloride, Blood 107.0 mmol/L (98-108); Creatinine, Blood 1.26 mg/dL (0.40-1.00); Glucose, Blood 161.0 mg/dL (70-99); Potassium, Blood 3.5 mmol/L (3.5-5.5); Sodium, Blood 134.0 mmol/L (136-145)
[2025-11-06 22:15] LABS: Magnesium, Blood 9.9 mg/dL (1.6-2.4)
--- NOTE | 2025-11-06 22:42 | NUR ---
RN PHONE CALL TO NOTIFY DR. REECE THAT MAG LEVEL CAME BACK 9.9 AND CREATNIN WAS 1.26. DR. REECE STATES TO CONTINUE WITH HOLDING MAGNESIUM THERAPY AT THIS TIME PT IS STILL SUPRA-THERAPEUTIC. ORDERS TO CONTINUE Q2 HOUR MAGNESIUM AND BMP CHECKS. DR. REECE STATES THAT SHE WOULD LIKE TO BE NOTIFIED ONLY IF MAG LEVEL IS <4 OR HAS WORSENING SYMPTOMS.
[2025-11-07] VITALS (16 sets, daily range): BP systolic 103–136; BP diastolic 58–89
[2025-11-07 00:24] LABS: Anion Gap 12.0 mmol/L (3-11); Blood Urea Nitrogen 13.0 mg/dL (8-24); CO2, Blood 19.0 mmol/L (21-32); Calcium, Blood 7.4 mg/dL (8.5-10.1); Chloride, Blood 109.0 mmol/L (98-108); Creatinine, Blood 1.4 mg/dL (0.40-1.00); Glucose, Blood 155.0 mg/dL (70-99); Magnesium, Blood 9.5 mg/dL (1.6-2.4); Potassium, Blood 3.9 mmol/L (3.5-5.5); Sodium, Blood 136.0 mmol/L (136-145)
--- NOTE | 2025-11-07 02:00 | NUR ---
THIS RN ASSUMED CARE OF PT AT 0130 REPORT FROM RAHEEM PLASENCIA AND ERINN CAMARGO. PT RESTING IN BED, BUT EASILY AWAKENED WHEN RN IN ROOM. PT A&O X4, REPORTS IS FEELING MUCH BETTER. 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 PT DENIES PARK, N/V, EPIGASTRIC PAIN, VISUAL CHANGES. NO CLONUS PRESENT, REFLEXES BRISK AND LUNG SOUNDS CLEAR, OTHER VS WITHIN NORMAL RANGE, ALTHOUGH TEMP LOW ON READING; FOLLOW UP WITH ORAL TEMP SHOWING 96.0. RN WILL RETAKE AND REASSESS. ERNANDEZ IN PLACE AND DRAINING LIGHT YELLOW URINE TO GRAVITY. BINDER AND AQUACEL DRESSING IN PLACE, DRESSING C/D/I. PT REPORTS MINIMAL PAIN, AND THAT IT IS CURRENTLY TOLERABLE. MAGNESIUM CONTINUES TO BE OFF. FRESH WATER PROVIDED, PT ASSISTED TO REPOSITION OTHERWISE DENIES OTHER NEEDS AT THIS TIME.
[2025-11-07 02:35] LABS: Anion Gap 13.0 mmol/L (3-11); Blood Urea Nitrogen 14.0 mg/dL (8-24); CO2, Blood 20.0 mmol/L (21-32); Calcium, Blood 7.0 mg/dL (8.5-10.1); Chloride, Blood 107.0 mmol/L (98-108); Creatinine, Blood 1.43 mg/dL (0.40-1.00); Glucose, Blood 152.0 mg/dL (70-99); Magnesium, Blood 8.4 mg/dL (1.6-2.4); Potassium, Blood 3.7 mmol/L (3.5-5.5); Sodium, Blood 136.0 mmol/L (136-145)
[2025-11-07 04:17] LABS: BASOPHILS ABSOLUTE AUTO 0.03 K/mm3 (0.00-0.23); BASOPHILS PERCENT AUTO 0 % (0-2); EOSINOPHILS ABSOLUTE AUTO 0.01 K/mm3 (0.00-0.68); EOSINOPHILS PERCENT AUTO 0 % (0-6); Hematocrit 32.9 % (33.0-51.0); Hemoglobin 11.0 g/dL (11.5-16.0); IMMATURE GRAN ABSOLUTE AUTO 0.10 K/mm3 (0.00-0.10); IMMATURE GRAN PERCENT AUTO 1 % (0-1); LYMPHOCYTES ABSOLUTE AUTO 0.82 K/mm3 (0.84-5.20); LYMPHOCYTES PERCENT AUTO 5 % (21-46); MONOCYTES ABSOLUTE AUTO 1.14 K/mm3 (0.16-1.47); MONOCYTES PERCENT AUTO 7 % (4-13); Mean Corpuscular HGB Conc 33.4 g/dL (31.5-36.5); Mean Corpuscular Volume 84 fL (80-100); NEUTROPHILS ABSOLUTE AUTO 14.69 K/mm3 (1.96-9.15); NEUTROPHILS PERCENT AUTO 87 % (41-73); NRBC ABSOLUTE 0.00 K/mm3 (0.00-0.02); NRBC Auto 0.0 /100 WBC (0.0-0.2); Platelet Count 207 K/mm3 (150-400); RDW Coefficient Variation 17.7 % (11.7-14.2); RDW Standard Deviation 54.0 fL (35.1-46.3)
[2025-11-07 04:40] LABS: Magnesium, Blood 7.7 mg/dL (1.6-2.4)
[2025-11-07 04:41] LABS: Anion Gap 10.0 mmol/L (3-11); Blood Urea Nitrogen 14.0 mg/dL (8-24); CO2, Blood 21.0 mmol/L (21-32); Calcium, Blood 7.0 mg/dL (8.5-10.1); Chloride, Blood 109.0 mmol/L (98-108); Creatinine, Blood 1.47 mg/dL (0.40-1.00); Glucose, Blood 122.0 mg/dL (70-99); Potassium, Blood 3.9 mmol/L (3.5-5.5); Sodium, Blood 136.0 mmol/L (136-145)
[2025-11-07 07:05] LABS: Anion Gap 13.0 mmol/L (3-11); Blood Urea Nitrogen 13.0 mg/dL (8-24); CO2, Blood 19.0 mmol/L (21-32); Calcium, Blood 6.9 mg/dL (8.5-10.1); Chloride, Blood 108.0 mmol/L (98-108); Creatinine, Blood 1.56 mg/dL (0.40-1.00); Glucose, Blood 116.0 mg/dL (70-99); Magnesium, Blood 6.8 mg/dL (1.6-2.4); Potassium, Blood 3.6 mmol/L (3.5-5.5); Sodium, Blood 136.0 mmol/L (136-145)
--- NOTE | 2025-11-07 08:25 | NUR ---
REPORT FROM JASON Smith STATES LAB WORK BACK, DR REECE CALLED BY HER TO UPDATE OF CREATINE TO 1.57 AND CURRENT MAGNESIUM LEVEL OF 6.8, AND GFR OF 47, NURSE REPORTED THAT DR LONDON WILL BE IN TO SEE PATIENT, PATIENT STATES SHE FEELS "GOOD" WHEN DR LONDON COMES IN WE WILL ATTEMPT TO STAND AT BEDSIDE
[2025-11-07 08:37] LABS: Anion Gap 12.0 mmol/L (3-11); Blood Urea Nitrogen 14.0 mg/dL (8-24); CO2, Blood 24.0 mmol/L (21-32); Calcium, Blood 6.9 mg/dL (8.5-10.1); Chloride, Blood 105.0 mmol/L (98-108); Creatinine, Blood 1.65 mg/dL (0.40-1.00); Glucose, Blood 96.0 mg/dL (70-99); Magnesium, Blood 6.6 mg/dL (1.6-2.4); Potassium, Blood 3.8 mmol/L (3.5-5.5); Sodium, Blood 137.0 mmol/L (136-145)
--- NOTE | 2025-11-07 08:38 | NUR ---
URINE APPEARS DARKER IN ERNANDEZ TUBING AND MAGNESIUM LEVEL 6.6 DOCTOR UPDATED
--- NOTE | 2025-11-07 08:50 | NUR ---
DR LONDON HERE, SHE IS CONSULTING WITH DR MCGUIRE [facility], URINE OUTPUT 100CC OF DARKER THEN LAST HOURS URINE.
[2025-11-07 08:53] LABS: Alanine Aminotransfer (ALT/SGP 19.0 U/L (12-78); Albumin, Blood 2.3 g/dL (3.4-5.0); Albumin/Globulin Ratio 0.8 (0.8-1.8); Aspartate Aminotrans (AST/SGOT 49.0 U/L (12-37); Bilirubin, Total 0.5 mg/dL (0.1-1.0); Globulin, Blood 3.0 g/dL (2.2-4.0); Total Protein, Blood 5.3 g/dL (6.4-8.2)
[2025-11-07] MEDS ORDERED: Polyethylene Glycol 3350 17 gm PO SCH (09:00)
[2025-11-07] MEDS ORDERED: Prenatal Vit/FE Fumarate/FA 1 Tab PO SCH (09:00)
--- NOTE | 2025-11-07 09:04 | NUR ---
DR LONDON UPDATED OF LABS AND DARKER URINE SHE IS IN HOUSE
--- NOTE | 2025-11-07 09:09 | NUR ---
DR LONDON HERE AT BEDSIDE WITH PATIENT
[2025-11-07 10:47] LABS: Albumin, Blood 2.3 g/dL (3.4-5.0); Anion Gap 13 mmol/L (3-11); Blood Urea Nitrogen 14 mg/dL (8-24); CO2, Blood 21 mmol/L (21-32); Calcium, Blood 7.0 mg/dL (8.5-10.1); Chloride, Blood 106 mmol/L (98-108); Creatinine, Blood 1.62 mg/dL (0.40-1.00); Glucose, Blood 130 mg/dL (70-99); Phosphorus, Blood 3.8 mg/dL (2.5-4.9); Potassium, Blood 3.5 mmol/L (3.5-5.5); Sodium, Blood 136 mmol/L (136-145)
--- NOTE | 2025-11-07 11:05 | NUR ---
patient up walked in room with minimal assist, did say she had some ringing in her ears when she sat back down but it quickly stopped, brushed teeth, linen on bed changed
--- NOTE | 2025-11-07 12:06 | NUR ---
patient requested biox off and b/p cuff off to let arms rest for a while
[2025-11-07] MEDS ORDERED: CALCIUM GLUC IN NACL, ISO-OSM 50 ML IV ONE (12:55)
[2025-11-08 04:00] VITALS: BP 115/54
--- NOTE | 2025-11-08 06:45 | NUR ---
THIS RN SPOKE WITH DR LONDON, WHOM ORDERED TO DC TELE AT THIS TIME AND TO MARY JO ERNANDEZ WHEN PATIENT WAS AWAKE AND READY TO AMBULATE TO THE BATHROOM. PT SLEEPING AT THIS TIME, BUT PLAN TO PASS ON TO DAY SHIFT RN.
[2025-11-08 06:47] LABS: Albumin, Blood 2.2 g/dL (3.4-5.0); Anion Gap 7 mmol/L (3-11); Blood Urea Nitrogen 20 mg/dL (8-24); CO2, Blood 18 mmol/L (21-32); Calcium, Blood 7.8 mg/dL (8.5-10.1); Chloride, Blood 118 mmol/L (98-108); Creatinine, Blood 1.72 mg/dL (0.40-1.00); Glucose, Blood 66 mg/dL (70-99); Magnesium, Blood 3.8 mg/dL (1.6-2.4); Phosphorus, Blood 4.6 mg/dL (2.5-4.9); Potassium, Blood 4.1 mmol/L (3.5-5.5); Sodium, Blood 139 mmol/L (136-145)
[2025-11-08 08:36] VITALS: BP 140/86
[2025-11-08 11:57] VITALS: BP 117/75
[2025-11-08 15:20] VITALS: BP 132/70
[2025-11-08 16:56] LABS: Albumin, Blood 2.3 g/dL (3.4-5.0); Anion Gap 7 mmol/L (3-11); Blood Urea Nitrogen 25 mg/dL (8-24); CO2, Blood 20 mmol/L (21-32); Calcium, Blood 8.1 mg/dL (8.5-10.1); Chloride, Blood 112 mmol/L (98-108); Creatinine, Blood 1.81 mg/dL (0.40-1.00); Glucose, Blood 103 mg/dL (70-99); Phosphorus, Blood 4.7 mg/dL (2.5-4.9); Potassium, Blood 4.4 mmol/L (3.5-5.5); Sodium, Blood 135 mmol/L (136-145)
--- NOTE | 2025-11-08 18:35 | NUR ---
labs back on patient creatine level 1.81, Dr Lovett update of lab values
[2025-11-08 19:17] VITALS: BP 133/71
[2025-11-08 21:41] VITALS: BP 135/85
[2025-11-09 00:14] VITALS: BP 125/69
[2025-11-09 02:54] VITALS: BP 131/79
[2025-11-09 04:08] VITALS: BP 122/66
[2025-11-09 09:20] VITALS: BP 134/84
[2025-11-09 09:54] LABS: BASOPHILS ABSOLUTE AUTO 0.02 K/mm3 (0.00-0.23); BASOPHILS PERCENT AUTO 0 % (0-2); EOSINOPHILS ABSOLUTE AUTO 0.09 K/mm3 (0.00-0.68); EOSINOPHILS PERCENT AUTO 1 % (0-6); Hematocrit 30.4 % (33.0-51.0); Hemoglobin 9.8 g/dL (11.5-16.0); IMMATURE GRAN ABSOLUTE AUTO 0.05 K/mm3 (0.00-0.10); IMMATURE GRAN PERCENT AUTO 1 % (0-1); LYMPHOCYTES ABSOLUTE AUTO 1.47 K/mm3 (0.84-5.20); LYMPHOCYTES PERCENT AUTO 16 % (21-46); MONOCYTES ABSOLUTE AUTO 0.60 K/mm3 (0.16-1.47); MONOCYTES PERCENT AUTO 7 % (4-13); Mean Corpuscular HGB Conc 32.2 g/dL (31.5-36.5); Mean Corpuscular Volume 87 fL (80-100); NEUTROPHILS ABSOLUTE AUTO 6.98 K/mm3 (1.96-9.15); NEUTROPHILS PERCENT AUTO 76 % (41-73); NRBC ABSOLUTE 0.00 K/mm3 (0.00-0.02); NRBC Auto 0.0 /100 WBC (0.0-0.2); Platelet Count 225 K/mm3 (150-400); RDW Coefficient Variation 18.5 % (11.7-14.2); RDW Standard Deviation 59.2 fL (35.1-46.3)
[2025-11-09 09:58] LABS: Albumin, Blood 2.2 g/dL (3.4-5.0); Anion Gap 10 mmol/L (3-11); Blood Urea Nitrogen 22 mg/dL (8-24); CO2, Blood 21 mmol/L (21-32); Calcium, Blood 8.4 mg/dL (8.5-10.1); Chloride, Blood 113 mmol/L (98-108); Creatinine, Blood 1.29 mg/dL (0.40-1.00); Glucose, Blood 71 mg/dL (70-99); Magnesium, Blood 2.2 mg/dL (1.6-2.4); Phosphorus, Blood 3.8 mg/dL (2.5-4.9); Potassium, Blood 4.0 mmol/L (3.5-5.5); Sodium, Blood 140 mmol/L (136-145)
--- NOTE | 2025-11-09 10:28 | NUR ---
DR MCGUIRE ROUNDED DR MCGUIRE INTO UNIT TO EVALUATE PATIENT, REVIEWED LABS WITH RN AND PATIENT, FEELS ENCOURAGED BY AM LAB RESULTS BUT WOULD LIKE REPEAT LABS DRAWN 11/10/25 AM. PT AGREEABLE TO STAYING OVER NIGHT WITH LAB REPEAT IN MORNING. NO NEW ORDERS OTHER THAN AM LAB DRAW
[2025-11-09 14:48] LABS: Albumin, Blood 2.3 g/dL (3.4-5.0); Anion Gap 6 mmol/L (3-11); Blood Urea Nitrogen 23 mg/dL (8-24); CO2, Blood 23 mmol/L (21-32); Calcium, Blood 8.4 mg/dL (8.5-10.1); Chloride, Blood 114 mmol/L (98-108); Creatinine, Blood 1.29 mg/dL (0.40-1.00); Glucose, Blood 64 mg/dL (70-99); Phosphorus, Blood 3.9 mg/dL (2.5-4.9); Potassium, Blood 4.5 mmol/L (3.5-5.5); Sodium, Blood 138 mmol/L (136-145)
[2025-11-09 16:05] VITALS: BP 127/79
--- NOTE | 2025-11-09 16:38 | NUR ---
DISCHARGE NOTE PATIENT DISCHARGED WITH INSTRUCTIONS, ENCOURAGED BY RN TO CONTINUE TAKING PRESCRIPTION OF TYLENOL WITH OXYCODONE FOR PAIN UNRELIEVED BY TYLENOL. INSTRUCTED PATIENT TO VISIT [facility] TOMORROW 11/10/25 TO COLLECT LABS, BETWEEN THE HOURS OF 8:30-12:[address] REECE, IF UNABLE TO GO TO [facility] PT TO VISIT [facility] TO COLLECT LABS. ELECTRONIC SCRIPT SENT TO [facility] PER PATIENTS REQUEST. THIS RN WALKED PATIENT AND TO CAR, DECLINED ANY QUESTIONS OR CONCERNS AT THAT TIME
== END 2025-11-09 16:25 | disposition home or self-care (01) | DRG 786 ==
LOC: OBS 19:03 → BC 19:04 → OBS 19:15 → BC 19:45
PROVIDERS: Family Medicine; Obstetrics & Gynecology; ADMIT Obstetrics & Gynecology
PROC: 3E0P7VZ Introduction of Hormone into Female Reproductive, Via Natural or Artificial Opening (ICD-10-PCS; 2025-11-06)
PROC: 3E033VJ Introduction of Other Hormone into Peripheral Vein, Percutaneous Approach (ICD-10-PCS; 2025-11-06)
PROC: 10D00Z1 Extraction of Products of Conception, Low, Open Approach (ICD-10-PCS; principal; 2025-11-06 10:30)
DX: O11.4 Pre-existing hypertension with pre-eclampsia, complicating childbirth (principal); N17.0 Acute kidney failure with tubular necrosis; Z37.0 Single live birth; Z3A.37 37 weeks gestation of pregnancy; O99.344 Other mental disorders complicating childbirth; F41.9 Anxiety disorder, unspecified; F39 Unspecified mood [affective] disorder; O99.324 Drug use complicating childbirth; F19.10 Other psychoactive substance abuse, uncomplicated; O77.0 Labor and delivery complicated by meconium in amniotic fluid; O99.892 Other specified diseases and conditions complicating childbirth; O99.284 Endocrine, nutritional and metabolic diseases complicating childbirth; E83.41 Hypermagnesemia; O62.2 Other uterine inertia; I95.9 Hypotension, unspecified; O99.42 Diseases of the circulatory system complicating childbirth; Z87.891 Personal history of nicotine dependence; Z79.82 Long term (current) use of aspirin; Z79.899 Other long term (current) drug therapy
CPT/HCPCS: 36415; 76770; 80048; 80053; 80069; 82330; 82570; 82803; 83615; 83735; 84156; 85025; 85384; 85610; 85730; 86850; 86900; 86901; 86923; A9270; J0169; J0612; J0690; J1720; J1885; J2210; J2250; J2371; J2405; J2590; J2765; J3010; J3475; J7120

== ENCOUNTER 2025-11-09 16:35 | Emergency (ER) | payer OTHER ==
[~2025-11-09] VITALS: Ht 160 cm; Wt 59.0 kg
[~2025-11-09 16:35] MED LIST changes: -Carboprost Tromethamine 250 MCG/ML 1ML Amp IM ONE; +LABE200 PO; -Methylergonovine Maleate 0.2MG / ML 1ML Amp IV ONE
[2025-11-09 16:47] VITALS: BP 125/86
[2025-11-09] MEDS ORDERED: RX Prepack 6 Tabs Oxycodone 5mg UD ONE (16:50)
== END 2025-11-09 16:56 | disposition home or self-care (01) ==
LOC: ER 16:35
DX: G89.18 Other acute postprocedural pain (principal); Z76.0 Encounter for issue of repeat prescription; Z87.442 Personal history of urinary calculi
CPT/HCPCS: 99281; A9270